=== PATIENT | male | born 1950 | race Caucasian/White ===

== ENCOUNTER → 2018-07-24 | Outpatient (CLI) | payer OTHER | END | disposition home or self-care (01) | LOC: LAB SHORT 08:40 → PLD 08:40 | DX: L57.0 Actinic keratosis (principal) | CPT/HCPCS: 88305 ==

== ENCOUNTER → 2021-03-09 | Outpatient (CLI) | payer OTHER | LOC: LAB 11:39 → LAB SHORT 11:39 | DX: D48.5 Neoplasm of uncertain behavior of skin (principal) | CPT/HCPCS: 88305 ==

== ENCOUNTER → 2022-09-01 | Outpatient (CLI) | payer OTHER | END | disposition home or self-care (01) | LOC: LAB 15:23 → LAB SHORT 15:23 → PLD 15:23 | DX: C44.311 Basal cell carcinoma of skin of nose (principal) | CPT/HCPCS: 88305 ==

== ENCOUNTER → 2023-02-22 | Outpatient (CLI) | payer OTHER | LOC: LAB 07:39 → LAB SHORT 07:39 | DX: L82.1 Other seborrheic keratosis (principal) | CPT/HCPCS: 88305 ==